=== PATIENT | female | born 1985 | race Two or more races ===

== ENCOUNTER → 2020-05-03 | Outpatient (CLI) | payer OTHER ==
--- NOTE | 2020-05-03 13:15 | KCIC ---
Complete abdominal ultrasound 05/03/2020 INDICATION: Upper abdominal pain COMPARISON STUDY: None Discussion: Ultrasound evaluation of the abdomen was performed. Static images are submitted to PACS. Visualized aorta is unremarkable. Pancreas is poorly visualized. Visualized portions of the pancreas are unremarkable. Visualized portions of the IVC are unremarkable. The liver is normal in size measur ing 15 cm longitudinally. Visualized portal vein is patent. No focal hepatic abnormalities are seen. The right kidney is normal in appearance measuring 10 cm in length. The gallbladder is normal in appe arance without evidence of wall thickening, stones, or sludge. Common bile duct is nondilated at 3 mm . Spleen is top normal in size measuring 11.4 cm in length as well as grossly unremarkable. The left kidney is normal in appearance measuring 10.9 cm in length. IMPRESSION: No sonographic evidence of acute intra-abdominal abnormality Electronically signed by: Harlan Ceballos MD (05/03/2020 1:12 PM) [id number]
== END ==
LOC: KCIC US 08:03
PROVIDERS: ATTEND Family Medicine
DX: R10.12 Left upper quadrant pain (principal)
CPT/HCPCS: 76700